=== PATIENT | female | born 1970 | race Caucasian/White ===

== ENCOUNTER 2021-07-25 09:54 | Emergency (ER) | payer OTHER ==
[~2021-07-25] VITALS: Ht 157.5 cm; Wt 56.7 kg
[2021-07-25] MEDS ORDERED: MICARDIS40 MG (10:02)
[2021-07-25] MEDS ORDERED: MEDROLPACK PO (13:18)
[2021-07-25] MEDS ORDERED: ALL DAY ALLERGY10 M3 PO (13:18)
== END 2021-07-25 14:01 ==
LOC: ER 09:54
DX: L20.9 Atopic dermatitis, unspecified (principal); I10 Essential (primary) hypertension